=== PATIENT | female | born 1935 | race Caucasian/White ===

== ENCOUNTER 2019-04-16 19:19 | Emergency (ER) | payer MEDICARE, MEDICAID ==
[~2019-04-16] VITALS: Ht 154.9 cm; Wt 68.0 kg
--- NOTE | 2019-04-16 19:30 | NUR ---
ADMITTED PT TO ER-[facility] 1B BIB RA909 C/O FALL FROM [facility]. L FOERHEAD SMALL ABRASION NOTED. BP STABLE , SR, 99%O2 SAT ON RM AIR. DR RAMIREZ CAME IN & EVALUATED PT.
--- NOTE | 2019-04-16 21:05 | NUR ---
discharge instructions given to son & was understood. [facility] under the care of her son.
[2019-04-16 21:21] VITALS: BP 135/79
== END 2019-04-16 21:05 | disposition home or self-care (01) ==
LOC: ER 19:19
DX: S00.83XA Contusion of other part of head, initial encounter (principal); M25.531 Pain in right wrist; F03.90 Unspecified dementia, unspecified severity, without behavioral disturbance, psychotic disturbance, mood disturbance, and anxiety; I10 Essential (primary) hypertension; Z88.0 Allergy status to penicillin; W18.39XA Other fall on same level, initial encounter; Y93.89 Activity, other specified; Y92.89 Other specified places as the place of occurrence of the external cause; Y99.8 Other external cause status
CPT/HCPCS: 70450; 73110; 93005; A4663